=== PATIENT | male | born 1980 | race American Indian/Alaskan Native ===

== ENCOUNTER 2017-04-07 12:02 | Emergency (ER) | payer SELFPAY ==
--- NOTE | 2017-04-07 13:14 | XRay Report ---
RIGHT KNEE, 2 views: History: Right knee injury. The bony architecture is intact without evidence of fracture or dislocation. No significant soft tissue abnormality is seen. IMPRESSION: Unremarkable right knee.
[2017-04-07 15:53] VITALS: BP 122/83
[2017-04-07] MEDS ORDERED: TORADOL IM ONE (15:54)
--- NOTE | 2017-04-07 18:29 | Emergency Department Report ---
Entered by CAROLYNE GRIFFITH, acting as scribe for VELVET SWEET NP. ED Extremity Problem HPI - General Chief complaint: Extremity Injury, Lower Stated complaint: RT KNEE INJURY Source: patient Mode of arrival: Ambulatory Limitations: No Limitations - History of Present Illness Initial comments: This is a 36 y/o male patient well-nourished with nontoxic or ill in appearance that presents for evaluation of right knee pain with swelling since yesterday. Pt states he performed a back flip, landing on his feet in the grass successfully but twitsted his knee and immediate pain and swelling noted to the right knee. He was able to ambulate to the room without assistance. No modifying factors noted. No other injuries reported. Patient denies joint redness, direct blow, fever, chills, headache, CP, SOB, calf pain, stiff neck, n /v. Patient denies any allergies. Denies PMH. MD Complaint: extremity pain -: Gradual, days(s) (2) Location: right, knee History of Same: No -: No myalgia, No fever, No associated dyspnea, No associated chest pain Radiation: none Severity scale (0 -10): 7 Quality: aching Consistency: constant Improves with: nothing Worsens with: nothing Associated Symptoms: denies other symptoms. denies: chest pain, shortness of breath, fever, myalgias, arthralgias, rash - Related Data Previous Rx's Medication Instructions Recorded Last Taken Type Ibuprofen [Motrin 600 MG tab] 600 mg PO Q8H PRN #20 tablet 04/07/17 Unknown Rx predniSONE [Deltasone] 20 mg PO BID #10 tab 04/07/17 Unknown Rx Allergies Allergy/AdvReac Type Severity Reaction Status Date / Time No Known Allergies Allergy Unverified 04/07/17 12:18 ED Review of Systems Comment: All other systems reviewed and negative Constitutional: no symptoms reported. denies: chills, fever Eyes: denies: eye pain, eye discharge, vision change ENT: denies: ear pain, throat pain Respiratory: no symptoms reported. denies: cough, shortness of breath Cardiovascular: denies: chest pain Endocrine: no symptoms reported Gastrointestinal: denies: abdominal pain, nausea, vomiting Genitourinary: denies: urgency, dysuria Musculoskeletal: other (right knee pain with swelling). denies: back pain Skin: denies: rash Neurological: denies: headache Psychiatric: denies: anxiety, depression Hematological/Lymphatic: denies: easy bleeding, easy bruising ED Past Medical Hx - Past Medical History Previous Medical History?: No - Surgical History Past Surgical History?: No - Social History Smoking Status: Never Smoker Substance Use Type: Alcohol - Medications Home Medications: Home Medications Medication Instructions Recorded Confirmed Last Taken Type Ibuprofen [Motrin 600 MG tab] 600 mg PO Q8H PRN #20 tablet 04/07/17 Unknown Rx predniSONE [Deltasone] 20 mg PO BID #10 tab 04/07/17 Unknown Rx ED Physical Exam - General Limitations: No Limitations General appearance: alert, in no apparent distress - Head Head exam: Present: atraumatic, normocephalic, normal inspection - Eye Eye exam: Present: normal appearance, PERRL, EOMI. Absent: scleral icterus, conjunctival injection, nystagmus, periorbital swelling, periorbital tenderness Pupils: Present: normal accommodation - ENT ENT exam: Present: normal exam, normal orophraynx, TM's normal bilaterally, normal external ear exam - Neck Neck exam: Present: normal inspection, full ROM. Absent: tenderness, meningismus, lymphadenopathy, thyromegaly - Respiratory Respiratory exam: Present: normal lung sounds bilaterally. Absent: respiratory distress, wheezes, rales, rhonchi, stridor, chest wall tenderness, accessory muscle use, decreased breath sounds, prolonged expiratory - Cardiovascular Cardiovascular Exam: Present: regular rate, normal rhythm, normal heart sounds. Absent: bradycardia, tachycardia, irregular rhythm - GI/Abdominal GI/Abdominal exam: Present: soft, normal bowel sounds. Absent: distended, tenderness, guarding, rebound, rigid - Rectal Rectal exam: Present: deferred - Extremities Exam Extremities exam: Present: normal inspection, full ROM, normal capillary refill , other (swelling noted to the right knee, without erythema, redness or pus). Absent: tenderness, pedal edema, joint swelling, calf tenderness - Expanded Lower Extremity Exam Right Hip exam: Present: normal inspection, full ROM, pelvic stability. Absent: tenderness, swelling, abrasion, laceration, ecchymosis, deformity, crepidus, dislocation, erythema, external rotation, internal rotation, shortening Upper Leg exam: Present: normal inspection, full ROM. Absent: tenderness, swelling, abrasion, laceration, ecchymosis, deformity, crepidus, dislocation, erythema Knee exam: Present: normal inspection, full ROM, tenderness, swelling, effusion , full knee extension. Absent: abrasion, laceration, ecchymosis, deformity, crepidus, dislocation, erythema, pain w/ pronation/supination, posterior draw sign, pain/laxity with valgus, pain/laxity with varus Lower Leg exam: Present: normal inspection, full ROM. Absent: tenderness, swelling, abrasion, laceration, ecchymosis, deformity, crepidus, dislocation, erythema, palpable cord, Lm's sign Ankle exam: Present: normal inspection, full ROM. Absent: tenderness, swelling , abrasion, laceration, ecchymosis, deformity, crepidus, dislocation, erythema, anterior draw sign Foot/Toe exam: Present: normal inspection, full ROM. Absent: tenderness, swelling, abrasion, laceration, ecchymosis, deformity, crepidus, dislocation, erythema, amputation, puncture wound, foreign body, calcaneal tenderness, tenderness at base of 5th metatarsal, nail avulsion, subungual hematoma Neuro vascular tendon exam: Present: no vascular compromise. Absent: pulse deficit, abnormal cap refill, motor deficit, sensory deficit, tendon deficit, extremity cold to touch, pallor, abnormal 2-point discrimination, decreased fine /light touch, foot drop, peroneal nerve deficit, significant pain with passive ROM of distal joint Gait: Positive: observed and limited by pain - Back Exam Back exam: Present: normal inspection, full ROM. Absent: tenderness, CVA tenderness (R), CVA tenderness (L), muscle spasm, paraspinal tenderness, vertebral tenderness, rash noted - Neurological Exam Neurological exam: Present: alert, oriented X3, CN II-XII intact, normal gait, reflexes normal - Psychiatric Psychiatric exam: Present: normal affect, normal mood - Skin Skin exam: Present: warm, dry, intact, normal color ED Course Vital Signs 04/07/17 04/07/17 12:18 15:52 Temperature 98.6 F 98.6 F Pulse Rate 74 64 Respiratory 20 16 Rate Blood Pressure 120/70 Blood Pressure 122/83 [Left] O2 Sat by Pulse 100 100 Oximetry - Reevaluation(s) Reevaluation #1: 04/07/17 16:03 Patient is able to speak in full sentences with no signs of distress noted. ED Medical Decision Making - Medical Decision Making Ed course: This is a 36-year-old male that presents with left knee strain 1- patient was examined by myself. Xray has been obtained with no findings of fracture or tissue swelling. Dictated by radiologist . Patient was notified of xray findings with no further questions noted by the patient.' 2- Patient received Solu-Medrol and Toradol IM in the ED 3- patient also received immobilizer and crutches. Crutches has been educated by the nurse. 4- at the time of discharge patient received prednisone and ibuprofen. Patient was instructed to follow-up with Dr. So or another orthopedic doctor in 24 hours or if symptoms such as numbness, tingling, increased swelling, joint redness, fever, chills, or worsening symptoms return to emergency room as soon as possible. 5- at time time of discharge, the patient does not seem toxic or ill in appearance. No acute signs of distress noted. Patient agrees to discharge treatment plan of care. No further questions noted by the patient. ED Disposition Clinical Impression: Strain of knee Qualifiers: Encounter type: initial encounter Laterality: right Qualified Code(s): S86.911A - Strain of unspecified muscle(s) and tendon(s) at lower leg level, right leg, initial encounter Disposition: - TO HOME OR SELFCARE Is pt being admited?: No Does the pt Need Aspirin: No Condition: Stable Instructions: Knee Pain (ED), Knee Immobilizer (ED), Ibuprofen (By mouth), Crutch Instructions (ED), Prednisone (By mouth) Additional Instructions: Follow-up with Dr. So or another orthopedic doctor in 24 hours or if symptoms such as numbness, tingling, increased swelling, joint redness, fever, chills, or worsening symptoms return to emergency room as soon as possible. Take prednisone and ibuprofen as prescribed. Prescriptions: Ibuprofen [Motrin 600 MG tab] 600 mg PO Q8H PRN #20 tablet PRN Reason: Pain predniSONE [Deltasone] 20 mg PO BID #10 tab Referrals: PRIMARY CAREMD [Primary Care Provider] - 3-5 Days [facility] [Outside] - 3-5 Days [facility] [Outside] - 3-5 ANJUM Deleon MD [Staff Physician] - 24 Hours Forms: Work/School Release Form(ED) This documentation as recorded by the NACHO bazan SHALANE,accurately reflects the service I personally performed and the decisions made by me,VELVET SWEET, RUDY.
== END 2017-04-07 18:06 | disposition home or self-care (01) ==
LOC: ED 12:02
DX: S76.911A Strain of unspecified muscles, fascia and tendons at thigh level, right thigh, initial encounter (principal); X58.XXXA Exposure to other specified factors, initial encounter; Y93.89 Activity, other specified; Y92.89 Other specified places as the place of occurrence of the external cause; Y99.8 Other external cause status
CPT/HCPCS: 29505; 73560; 96372; 99283; J1885; J2920